=== PATIENT | female | born 1985 | race Caucasian/White ===

== ENCOUNTER 2017-02-23 07:39 | Inpatient (IN) | payer OTHER ==
[2017-02-23] VITALS (18 sets, daily range): BP systolic 93–126; BP diastolic 60–80; PULSE 50–88; RESP 14–20; TEMP 98.2–99
[~2017-02-23 07:39] MED LIST: PREN29TA PO
[2017-02-23] MEDS ORDERED: LACTATED RINGER'S 1000 ML INJ 1,000 ML IV PRN (08:16)
[2017-02-23] MEDS ORDERED: LACTATED RINGER'S 1000 ML INJ 1,000 ML IV SCH (08:16)
--- NOTE | 2017-02-23 08:16 | PD ---
HPI Chief Complaint Contractions Date Seen: Feb 23, 2017 Time Seen: 08:12 Travel History International Travel<30 Days: No Contact w/Intl Traveler<30Days: No Known Affected Area: No History of Present Illness HPI 32-year-old who is at 39 weeks 2 days today comes in complaining of contractions that began at 3:30 this morning. Patient said uncomplicated course and her last delivery was spontaneous vaginal in [facility]. Para: 1 : 2 History Past Medical History Medical History: Denies Significant Hx Obstetric History Obstetric History Spontaneous vaginal delivery Past Surgical History Surgical History: No Previous Surgery Social History Alcohol Use: No Tobacco Use: No Substance Abuse: No Allergies-Medications (Allergen,Severity, Reaction): Coded Allergies: No Known Allergies (Unverified , 08/29/16) Home Meds Reported Medications Vit-Iron Carbonyl ( Plus Iron 29-1 mg)1 Tab Tab1 Tab PO DAILY Ref 0 08/29/16 Review of Systems Except as stated in HPI: all other systems reviewed are Neg Physical Exam Narrative GENERAL: Well-nourished, well-developed patient. SKIN: Warm and dry. HEAD: Normocephalic and atraumatic. EYES: No scleral icterus. No injection or drainage. ENT: No nasal drainage noted. Mucous membranes pink. Airway patent. NECK: Supple, trachea midline. No JVD. CARDIOVASCULAR: Regular rate and rhythm without murmurs, gallops, or rubs. RESPIRATORY: Breath sounds equal bilaterally. No accessory muscle use. BREASTS: Bilateral exam showed no masses , no retractions, no nipple discharge. ABDOMEN/GI: Abdomen soft, non-tender, bowel sounds present, no rebound, no guarding Gravid to [-38 ] weeks size Fundal Height: [-] GENITOURINARY: External Genitalia: intact and normal in appearance BUS glands: [Normal-] Cervix: [5-6-] Dilatation: [5-6-] Effacement: [-100] Station: [--2] Presentation: [-Vertex] Membranes: [intact] Uterine Contractions: [-Every 5] FHT's: Category: [-1] Baseline: [-150] Reactive: [Moderate-] Variability: [Moderate-] Decels: [Absent-] EXTREMITIES: No cyanosis or edema. BACK: Nontender without obvious deformity. No CVA tenderness. NEUROLOGICAL: Awake and alert. Motor and sensory grossly within normal limits. Five out of 5 muscle strength in all muscle groups. Normal speech. Data Data Vital Signs Reviewed: Yes MDM Medical Record Reviewed: Yes Plan 32-year-old who is at 39-40 weeks gestation In active labor will admit Group B strep negative History of precipitous labor, Dr. Perez is aware Diagnosis Diagnosis: Primary Impression: Irregular uterine contractions Additional Impression: 39 weeks gestation of Xiao Dickens MD Feb 23, 2017 08:16
[2017-02-23] MEDS ORDERED: LIDOCAINE HCL 1% 50 ML VIAL I-DERMAL PRN (08:30)
[2017-02-23] MEDS ORDERED: OXYTOCIN 30 UNITS-500ML PREMIX 500 ML IV ONE (08:30)
[2017-02-23] MEDS ORDERED: ONDANSETRON HCL 4 MG/2 ML VIAL IV PRN (08:30)
[2017-02-23] MEDS ORDERED: CITRIC ACID-SODIUM CITRATE LIQ 30 ML UDC PO SCH (08:30)
[2017-02-23] MEDS ORDERED: MINERAL OIL 10 ML VIAL TOPICAL PRN (08:30)
[2017-02-23] MEDS ORDERED: LIDOCAINE HCL 1% 50 ML VIAL INFIL PRN (08:30)
[2017-02-23] MEDS ORDERED: SODIUM CHLORID 0.9% 500 ML INJ 500 ML IV PRN (08:30)
[2017-02-23] MEDS ORDERED: SODIUM CHLOR 0.9% 1000 ML INJ 1,000 ML IV PRN (08:36)
[2017-02-23 09:10] LABS: AUTOMATED NEUTROPHIL # 12.2 TH/MM3 (1.8-7.7); BASOPHIL # 0.1 TH/MM3 (0-0.2); BASOPHIL % 0.6 % (0.0-2.0); EOSINOPHIL # 0.1 TH/MM3 (0-0.4); EOSINOPHIL % 0.4 % (0.0-4.0); HEMATOCRIT 43.5 % (35.0-46.0); HEMO FLAGS DIFF FINAL; LYMPH % 16.7 % (9.0-44.0); LYMPHOCYTE # 2.7 TH/MM3 (1.0-4.8); MEAN CELL VOLUME 89.1 FL (80.0-100.0); MEAN CORPUSCULAR HEMOGLOBIN 30.1 PG (27.0-34.0); MEAN CORPUSCULAR HGB CONC 33.8 % (32.0-36.0); MONO % 5.9 % (0.0-8.0); NEUT % 76.4 % (16.0-70.0); PLATELET COUNT 233 TH/MM3 (150-450); RED BLOOD COUNT 4.89 MIL/MM3 (4.00-5.30); RED CELL DISTRIBUTION WIDTH 13.4 % (11.6-17.2)
[2017-02-23] MEDS ORDERED: OXYTOCIN 10 UNIT/ML AMP ONE (14:21)
--- NOTE | 2017-02-23 14:30 | PD.OB.DELI ---
Anesthesia: None Episiotomy: None Vaginal Delivery: Normal Presentation: Occiput anterior Nuchal Cord: None Delayed cord clamping (45 sec): Yes Infant: Female Weight: 7-3 Placenta: Spontaneous delivery Laceration: 1 deg Repair: Chromic interrupted (local anes injected) Maggie Perez MD Feb 23, 2017 14:30
[2017-02-23] MEDS ORDERED: ALUMINUM/MAGNESIUM/SIMETH 30 ML CUP PO PRN (14:45)
[2017-02-23] MEDS ORDERED: DOCUSATE SODIUM 50 MG/SENNA 8.6 MG TAB PO PRN (14:45)
[2017-02-23] MEDS ORDERED: OXYTOCIN 10 UNIT/ML AMP IM ONE (14:45)
[2017-02-23] MEDS ORDERED: LIDOCAINE HCL 1% 20 ML VIAL INFIL ONE (14:45)
[2017-02-23] MEDS ORDERED: SODIUM CHLORIDE 0.9% FLUSH 10 ML FLUSH IV FLUSH PRN (14:45)
[2017-02-23] MEDS ORDERED: ZOLPIDEM TARTRATE 5 MG TAB PO PRN (14:45)
[2017-02-23] MEDS ORDERED: oxyCODONE/ACETAMINOPHEN 5 MG/325 MG TAB PO PRN (14:45)
[2017-02-23] MEDS ORDERED: ONDANSETRON ODT 4 MG TAB PO PRN (14:45)
[2017-02-23] MEDS ORDERED: ACETAMINOPHEN 325 MG TAB PO PRN (14:45)
[2017-02-23] MEDS ORDERED: DIPHTH/TETANUS/ACEL PERTUSSIS (BOOSTER) 0.5 ML VIAL/PFS IM ONE (16:00)
[2017-02-23] MEDS ORDERED: MEASLES, MUMPS, RUBELLA VACCINE 0.5 ML VIAL SQ ONE (16:00)
[2017-02-23] MEDS: WITCH HAZEL 50%/GLYCERIN 12.5% 40 PAD JAR TOPICAL PRN (20:47)
[2017-02-23] MEDS: IBUPROFEN 600 MG TAB PO PRN (20:47)
[2017-02-23] MEDS: BENZOCAINE 20% TOPICAL SPRAY 60 ML CAN TOPICAL PRN (20:47)
[2017-02-24 02:45] VITALS: TEMP 98.1
[2017-02-24] MEDS: IBUPROFEN 600 MG TAB PO PRN ×4 (02:50→23:01)
--- NOTE | 2017-02-24 08:27 | HHI.OB ---
Subjective Post Day: 1 Remarks PPD#1, S/P , Doing well, discussed discharge later today if infant cleared for discharge Objective Vitals/I&O Vital Signs Date Time Temp Pulse Resp B/P Pulse Ox O2 Delivery O2 Flow Rate FiO2 02/24/17 02:45 98.1 02/23/17 20:23 99.0 64 18 103/66 02/23/17 16:30 88 96/60 02/23/17 16:30 98.8 14 02/23/17 15:46 56 104/61 02/23/17 15:31 56 119/71 02/23/17 15:16 50 124/74 02/23/17 15:02 61 112/63 02/23/17 14:55 20 02/23/17 14:46 54 126/76 02/23/17 14:45 98.6 20 02/23/17 14:39 61 123/79 02/23/17 13:23 98.6 20 02/23/17 13:21 50 93/80 02/23/17 12:29 61 111/65 02/23/17 12:28 20 02/23/17 11:28 62 120/70 02/23/17 11:26 98.2 20 02/23/17 10:24 20 02/23/17 09:26 66 114/62 Objective Remarks GENERAL: Well-nourished, well-developed patient. CARDIOVASCULAR: Regular rate and rhythm without murmurs, gallops, or rubs. RESPIRATORY: Breath sounds equal bilaterally. No accessory muscle use. ABDOMEN/GI: Abdomen soft, non-tender. Fundus: Firm, non-tender at umbilicus. GENITOURINARY: Light to moderate bleeding. EXTREMITIES: No cyanosis or edema, non-tender, without signs of DVT. Medications and IVs Current Medications Medications (Trade) Dose Ordered Sig/Krystin Route Start Time Stop Time Status Last Admin (NS Flush) 2 ml BID IV FLUSH 02/23/17 21:00 (NS Flush) 2 ml UNSCH PRN IV FLUSH 02/23/17 14:45 (Tylenol) 650 mg Q4H PRN PO 02/23/17 14:45 (Motrin) 600 mg Q6H PRN PO 02/23/17 14:45 02/24/17 02:50 (Percocet 5-325 Mg) 1 tab Q4H PRN PO 02/23/17 14:45 (Americaine 20% Top Spr) 1 spray Q4H PRN TOPICAL 02/23/17 14:45 02/23/17 20:47 (Tucks Pads) 1 applic QID PRN TOPICAL 02/23/17 14:45 02/23/17 20:47 (Radha-Colace) 2 tab Q12H PRN PO 02/23/17 14:45 (Ambien) 5 mg HS PRN PO 02/23/17 14:45 (Mag-Al Plus Susp Liq) 15 ml Q8H PRN PO 02/23/17 14:45 (Zofran Odt) 4 mg Q6H PRN PO 02/23/17 14:45 Assessment/Plan Assessment and Plan PPD#1, Excellent s/p , Desires discharge home today if infant discharged. Discharge Planning Today, routine Attending Attestation seen by Jaron Carr MD Feb 24, 2017 08:27
[2017-02-24] MEDS ORDERED: IBUP-232 PO (08:28)
--- NOTE | 2017-02-24 08:29 | HHI.DS ---
Admission Date Feb 23, 2017 at 08:26 Admitting Diagnosis Diagnosis: Vaginal Delivery: Normal : Female Brief History 32-year-old who is at 39 weeks 2 days today comes in complaining of contractions that began at 3:30 this morning. Patient said uncomplicated course and her last delivery was spontaneous vaginal in [facility]. Pt Condition on Discharge: Good Discharge Disposition: Discharge Home Discharge Instructions Diet Instructions: As Tolerated, No Restrictions Activities You Can Perform: Shower Only-No Bath Activities to Avoid: Prolonged Standing, Strenuous Activity, Sexual Activity Jaron Car MD Feb 24, 2017 08:29
[2017-02-24 08:45] VITALS: BP 95/68; PULSE 61; RESP 16; TEMP 98.1; O2SAT 97
--- NOTE | 2017-02-24 09:05 | HHI.OB ---
Subjective Post Day: 1 Remarks Doing very well \would like to go home today if baby can Objective Vitals/I&O Vital Signs Date Time Temp Pulse Resp B/P Pulse Ox O2 Delivery O2 Flow Rate FiO2 02/24/17 02:45 98.1 02/23/17 20:23 99.0 64 18 103/66 02/23/17 16:30 88 96/60 02/23/17 16:30 98.8 14 02/23/17 15:46 56 104/61 02/23/17 15:31 56 119/71 02/23/17 15:16 50 124/74 02/23/17 15:02 61 112/63 02/23/17 14:55 20 02/23/17 14:46 54 126/76 02/23/17 14:45 98.6 20 02/23/17 14:39 61 123/79 02/23/17 13:23 98.6 20 02/23/17 13:21 50 93/80 02/23/17 12:29 61 111/65 02/23/17 12:28 20 02/23/17 11:28 62 120/70 02/23/17 11:26 98.2 20 02/23/17 10:24 20 02/23/17 09:26 66 114/62 Objective Remarks GENERAL: Well-nourished, well-developed patient. CARDIOVASCULAR: Regular rate and rhythm without murmurs, gallops, or rubs. RESPIRATORY: Breath sounds equal bilaterally. No accessory muscle use. ABDOMEN/GI: Abdomen soft, non-tender. Fundus: Firm, non-tender at umbilicus. GENITOURINARY: Light to moderate bleeding. EXTREMITIES: No cyanosis or edema, non-tender, without signs of DVT. Medications and IVs Current Medications Medications (Trade) Dose Ordered Sig/Krystin Route Start Time Stop Time Status Last Admin (NS Flush) 2 ml BID IV FLUSH 02/23/17 21:00 (NS Flush) 2 ml UNSCH PRN IV FLUSH 02/23/17 14:45 (Tylenol) 650 mg Q4H PRN PO 02/23/17 14:45 (Motrin) 600 mg Q6H PRN PO 02/23/17 14:45 02/24/17 08:52 (Percocet 5-325 Mg) 1 tab Q4H PRN PO 02/23/17 14:45 (Americaine 20% Top Spr) 1 spray Q4H PRN TOPICAL 02/23/17 14:45 02/23/17 20:47 (Tucks Pads) 1 applic QID PRN TOPICAL 02/23/17 14:45 02/23/17 20:47 (Radha-Colace) 2 tab Q12H PRN PO 02/23/17 14:45 (Ambien) 5 mg HS PRN PO 02/23/17 14:45 (Mag-Al Plus Susp Liq) 15 ml Q8H PRN PO 02/23/17 14:45 (Zofran Odt) 4 mg Q6H PRN PO 02/23/17 14:45 Assessment/Plan Assessment and Plan PPD#1, Excellent s/p , Desires discharge home today if infant discharged. Discharge Planning Today, routine Sheridan Yoon MD Feb 24, 2017 09:05
[2017-02-24] MEDS: SODIUM CHLORIDE 0.9% FLUSH 10 ML FLUSH IV FLUSH SCH (09:17)
[2017-02-24] MEDS: BENZOCAINE 20% TOPICAL SPRAY 60 ML CAN TOPICAL PRN (16:06)
[2017-02-24] MEDS: WITCH HAZEL 50%/GLYCERIN 12.5% 40 PAD JAR TOPICAL PRN (16:06)
[2017-02-24 21:18] VITALS: BP 105/64; PULSE 66; RESP 18; TEMP 98.7
[2017-02-25] MEDS: SODIUM CHLORIDE 0.9% FLUSH 10 ML FLUSH IV FLUSH SCH (02:43)
[2017-02-25] MEDS: IBUPROFEN 600 MG TAB PO PRN ×2 (05:26→11:29)
[2017-02-25 09:05] VITALS: BP 93/65; PULSE 76; RESP 18; TEMP 97.7
[2017-02-25] MEDS ORDERED: METO10TA PO (09:07)
--- NOTE | 2017-02-25 09:07 | HHI.DCPOC ---
Discharge Care Plan Report Symptoms to Your Doctor -Temperature above 100.5 degrees -Redness, of incision or excessive or foul smelling drainage -Unusual pain or calf pain -Increased vaginal bleeding -Painful or difficulty urinating -Feelings of extreme sadness or anxiety after 2 weeks Goals to Promote Your Health * To prevent worsening of your condition and complications * To maintain your health at the optimal level Directions to Meet Your Goals Take your medications as prescribed Follow your dietary instruction Follow activity as directed Ensure plenty of rest for recovery Drink fluids for hydration Keep your appointments as scheduled Take your immunizations and boosters as scheduled If your symptoms worsen call your PCP, if no PCP go to Urgent Care Center or Emergency Room Smoking is Dangerous to Your Health. Avoid second hand smoke Call the 24-hour crisis hotline for domestic abuse at Sheridan Yoon MD Feb 25, 2017 09:07
[2017-02-25] MEDS ORDERED: METOCLOPRAMIDE HCL 10 MG TAB PO SCH (11:00)
== END 2017-02-25 12:09 | disposition home or self-care (01) | DRG 775 ==
LOC: HOBED 07:39 → H2EA 08:26 → H1EA 16:05
PROVIDERS: ADMIT Obstetrics & Gynecology; ATTEND Obstetrics & Gynecology
PROC: 10E0XZZ Delivery of Products of Conception, External Approach (ICD-10-PCS; principal; 2017-02-23)
PROC: 0HQ9XZZ Repair Perineum Skin, External Approach (ICD-10-PCS; 2017-02-23)
DX: O70.0 First degree perineal laceration during delivery (principal); Z37.0 Single live birth; Z3A.39 39 weeks gestation of pregnancy
CPT/HCPCS: 85025; 86900; 86901; 90715; 99285; J2590